=== PATIENT | male | born 2005 | race Caucasian/White ===

== ENCOUNTER → 2024-08-21 15:17 | Outpatient (REF) | payer OTHER, SELFPAY | LOC: HWRAD 15:17 | PROVIDERS: ATTENDING PHYSICIAN Podiatrist; FAMILY PHYSICIAN Family Medicine | DX: M12.9 Arthropathy, unspecified (principal) | CPT/HCPCS: 73630 ==

== ENCOUNTER → 2025-10-23 07:56 | Outpatient (REF) | payer OTHER, SELFPAY | LOC: HWRAD 07:56 | PROVIDERS: ATTENDING PHYSICIAN Physician Assistant | DX: R10.9 Unspecified abdominal pain (principal) | CPT/HCPCS: 76700 ==

== ENCOUNTER 2025-10-29 10:49 | Emergency (ER) | payer OTHER, SELFPAY ==
[2025-10-29 11:12] VITALS: BP 133/84
--- NOTE | 2025-10-29 11:58 | ED.GENMED ---
History of Present Illness
General
Chief Complaint: Abdominal Pain
Source: patient and family
Exam Limitations: none
Time Seen by Provider: 10/29/25 11:45
History of Present Illness
History of Present Illness:
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 Symptoms initially started in August. He ate a large amount of fiber gummies and then became constipated and developed an anal fissue
afterwards. He was told to start taking Metamucil which he has been taking since then. He has been having issues with lower abdominal cramping for over a month now. He was sent for an outpatient abdominal ultrasound last week by his PCP.
Ultrasound showed an echogenic focus in the left lobe as well as the tuan hepatis hepatic for which MRI abdomen was recommended to exclude a mass. MRI is scheduled for 11/14. Patient developed explosive diarrhea 2 days ago. Mother is worried
that he may have a blockage. He also has a history of pyelonephritis although he denies any urinary symptoms or fevers currently. No prior abdominal surgeries.
Phy Exam
General Physical Exam
General Presentation: well appearing and no apparent distress
General Skin: warm and dry
General Habitus: normal
General Mental: alert
ENT Exam
ENT Exam: normocephalic
Pulmonary Exam
Pulmonary Exam: no respiratory distress
Gastrointestinal Exam
Gastrointestinal Exam: normal bowel sounds, soft, non distended and other (Mild tenderness in suprapubic and RLQ regions. Abdomen soft, non-distended. No rebound or guarding.)
Neurological Exam
Neurological Exam: alert
Tara Coma Scale
Eye Opening: Spontaneous
Verbal Response: Oriented
Motor Response: Obeys Commands
GCS Total Score: 15
Skin Exam
Skin Exam: normal color and warm/dry
Psychiatric Exam
Psychiatric Exam: normal mood/affect
Course
Orders/Labs/Results
Orders:
Orders
10/29/25 11:56
Iohexol [Omnipaque] See Protocol PO NOW STA
10/29/25 11:57
CT Abd/pel W Iv And Oral Contr Urgent
Comment:
Reason For Exam: lower abd pain, diarrhea
10/29/25 12:13
Complete Blood Count/With Diff Urgent
Comprehensive Metabolic Panel Urgent
Lipase Urgent
Urinalysis Reflex To Culture Urgent
Date Specimen was Collected: 10/29/25
Time Specimen was Collected: 12:07
10/29/25 13:36
Stool Culture Urgent
JASVIR Source: Feces/Stool
Specimen Description:
Date Specimen was Collected: 10/29/25
Time Specimen was Collected: 13:35
Abnormal Lab Results
10/29/25
12:13
MCH 26.9 L pg
(27.0-31.0)
MCHC 31.9 L g/dL
(33.0-37.0)
Creatinine 0.6 L mg/dL
(0.7-1.3)
10/29/25 12:13
10/29/25 12:13
Vital Signs
Initial and Last Documented VS:
Initial Vital Signs
Temp Pulse Resp BP Pulse Ox
98.4 F 68 18 133/84 68
10/29/25 11:12 10/29/25 11:12 10/29/25 11:12 10/29/25 11:12 10/29/25 11:12
Last Documented Vital Signs
Temp Pulse Resp BP Pulse Ox
98.4 F 66 16 109/72 100
10/29/25 11:12 10/29/25 15:35 10/29/25 15:35 10/29/25 15:00 10/29/25 15:15
MDM/Problems Addressed
Differential Diagnosis Includes:
19yoM here with lower abd cramping ongoing for >1 month. Now with diarrhea x 2 days. Hx of Prader Willi syndrome and eating less than usual. Mother worried about a blockage. VSS. Patient well appearing in no distress. No signs of peritonitis on
abdominal exam. Differential diagnosis includes but is not limited to: viral gastroenteritis, colitis, appendicitis, overflow diarrhea
Initial ED plan: Check abdominal labs, UA, stool culture, and CT abdomen with IV/p.o. contrast.
*Pulse Oximetry
SaO2: 68
Oxygen Mode of Delivery: Room air
Patient hypoxic: no
*Critical Care Note
Total Time (30-74mins, 75-104mins- exclusive of procedures): Not Applicable
Update Note
Update Note:
Labs unremarkable including normal white count, renal function, LFTs. UA bland without signs of infection. CT shows prominence of mesenteric lymph nodes diffusely suggesting possible mesenteric adenitis. No evidence of acute appendicitis or bowel
obstruction seen on CT. No indication for hospitalization. Supportive care discussed including hydration and bland diet. Advised follow-up with PCP and ED return precautions reviewed. Mother in agreement with plan and patient was discharged in
stable condition.
ED Attending Note
-
Portions of this chart may have been created with voice recognition software.� Occasional wrong word or��sound alike� substitutions may have occurred due to the inherent limitations of voice recognition software.
Discharge Plan
Departure
Patient Disposition: Home (Routine Discharge)
Date of Disposition: 10/29/25
Time of Disposition: 15:29
Patient with high blood pressure during this ER visit?: No
Discharge Problem:
Mesenteric adenitis
Instructions: Mesenteric Lymphadenitis (DC)
Prescriptions:
No Action
somatropin [Norditropin Cartridge] 15 MG/1.5 ML cartridge
0.7 mg SQ HS
Referrals:
Derrick Walsh PA [Family Provider, Family Practice]
Activity Restrictions/Additional Instructions:
Eat a bland diet (bananas, rice, applesauce, toast). Drink plenty of fluids and stay hydrated.
We will call you if the stool culture comes back positive.
Please follow-up with your family doctor. Return to the ER with any new or worsening symptoms.
Interventions
Interventions:
*Risk Screen - Suicide Last Done: 10/29/25 11:12
*General Assessment Last Done: 10/29/25 11:12
*Neglect/Abuse Screening Last Done: 10/29/25 11:12
*ED COVID-19 Vaccine History Last Done: 10/29/25 12:00
*ED Influenza Vaccine History Last Done: 10/29/25 12:00
[facility] Fall Risk Assessment Tool Last Done: 10/29/25 15:36
*Nursing Disposition Last Done: 10/29/25 15:37
NN-Fpzqkf-Gviedojupj Assessment Last Done: 10/29/25 12:00
Discharge Date and Time
Discharge Date/Time: 10/29/25 15:38
Print Language: ICELANDIC
[2025-10-29] MEDS: OMNIPAQUE 50 ML PO (12:14)
[2025-10-29 12:33] LABS: Urine Character Clear (Clear)
[2025-10-29 12:37] LABS: Hematocrit 48.6 % (39.0-52.0); Hemoglobin 15.5 g/dL (13.0-18.0); Mean Corp Hgb Conc. 31.9 g/dL (33.0-37.0); Mean Corpuscular Volume 84.4 fL (80.0-94.0); Nucleated Red Blood Cells % 0 % (-); Platelet Count 250 10^3/uL (130-400); Red Cell Dist. Width 13.8 % (11.5-14.5)
[2025-10-29 12:55] LABS: ALT (SGPT) 34 U/L (0-50); AST (SGOT) 29 U/L (17-59); Albumin 4.9 g/dl (3.5-5.0); Alkaline Phosphatase 65 U/L (38-126); Blood Urea Nitrogen 11 mg/dl (9-20); Calcium 9.4 mg/dl (8.4-10.2); Carbon Dioxide 29 mmol/L (22-30); Chloride 100 mmol/L (98-107); Glucose 85 mg/dl (70-99); Lipase 55 U/L (23-300); Potassium 3.9 mmol/L (3.5-5.1); Sodium 137 mmol/L (135-145); Total Protein 7.9 g/dl (6.3-8.2); eGFR > 60.00
[2025-10-29 14:34] VITALS: BP 126/77
[2025-10-29 15:00] VITALS: BP 109/72
== END 2025-10-29 15:38 | disposition home or self-care (01) ==
LOC: EMR 10:49
PROVIDERS: Physician Assistant; EMERGENCY PHYSICIAN Student in an Organized Health Care Education/Training Program; FAMILY PHYSICIAN Physician Assistant
DX: I88.0 Nonspecific mesenteric lymphadenitis (principal)
CPT/HCPCS: 99284; 74177; 80053; 81003; 83690; 85025; 87045; 87046; 87427; Q9967